=== PATIENT | female | born 1945 | race Caucasian/White ===

== ENCOUNTER 2017-07-31 10:48 | Emergency (ER) | payer MEDICARE, OTHER ==
[~2017-07-31] VITALS: Ht 165.1 cm; Wt 60.0 kg
[~2017-07-31 10:48] MED LIST: ACET325T11; LEVO50TA4 PO; OXYC-360 PO; PRAV40TA PO
[2017-07-31 10:51] VITALS: BP 111/73; PULSE 115; RESP 18; TEMP 98.7; O2SAT 96
[2017-07-31 11:13] VITALS: BP 141/73; PULSE 107; RESP 20; TEMP 98.4; O2SAT 18; O2SAT 97
[2017-07-31] MEDS ORDERED: PRAV40TA2 PO (11:35)
[2017-07-31] MEDS ORDERED: OXYC1TAB63 PO (11:35)
[2017-07-31] MEDS ORDERED: mag oxide (11:35)
[2017-07-31] MEDS ORDERED: LOSA50TA PO (11:35)
[2017-07-31] MEDS ORDERED: MULTIVITAMIN (11:35)
[2017-07-31] MEDS ORDERED: POTA-243 PO (11:35)
[2017-07-31] MEDS ORDERED: METO10TA PO (11:35)
[2017-07-31] MEDS ORDERED: METO25TA3 PO (11:35)
[2017-07-31] MEDS ORDERED: SENN1TAB17 PO (11:35)
[2017-07-31] MEDS ORDERED: AMLO5TAB2 PO (11:35)
[2017-07-31] MEDS ORDERED: PANT20TA2 PO (11:35)
[2017-07-31] MEDS ORDERED: LORA-373 PO (11:35)
[2017-07-31] MEDS ORDERED: VITA1000 PO (11:35)
[2017-07-31] MEDS ORDERED: LEVO50TA4 PO (11:35)
[2017-07-31] MEDS ORDERED: TYLE325T PO (11:37)
[2017-07-31] MEDS ORDERED: tylenol pm (11:37)
--- NOTE | 2017-07-31 11:40 | PD ---
HPI . Nausea/Vomiting Chief Complaint: GI Complaint Time Seen by Provider: 11:28 Travel History International Travel<30 days: No Contact w/Intl Traveler<30days: No Traveled to known affect area: No History of Present Illness HPI 72-year-old female presents to the emergency department for evaluation of nausea , vomiting, confusion, lightheadedness and weakness that started approximately one week ago. Patient has been receiving chemotherapy treatment for endometrial cancer since 2011. Patient was referred to the emergency department today when she arrived for her chemotherapy appointment with Dr. Reyes and reported the recent nausea, vomiting, confusion and weakness. Patient's daughter is her primary caregiver at home. Patient's daughter is at bedside and reports that her magnesium has been low recently and they have been trying to replenish that. Patient's daughter also reports bright red blood in her stool recently. Patient denies any fevers, chills, malaise, dysuria, hematuria or shortness of breath. PFSH Past Medical History Cancer: Yes (CERVICAL CANCER ; ENDOMETRIAL CANCER) Cardiovascular Problems: Yes Chemotherapy: Yes (LAST TREATMENT 07/17) Diabetes: Yes (TYPE II, PT CHECKS GLUCOSE DAILY BUT NOT ON MEDICATIONS) Patient Takes Glucophage: No Hepatitis: No Hiatal Hernia: No Neurologic: No Reproductive: No Respiratory: No Thyroid Disease: Yes ?: Not Past Surgical History Hysterectomy: Yes Pacemaker: No Other Surgery: Yes Social History Alcohol Use: Yes (OCCASSIONAL) Tobacco Use: No Substance Use: No Allergies-Medications (Allergen,Severity, Reaction): Coded Allergies: Sulfa (Sulfonamide Antibiotics) (Unverified Allergy, Severe, RASH, 06/18/17 ) Reported Meds & Prescriptions Reported Meds & Active Scripts Active Reported Tylenol (Acetaminophen) 325 Mg Tab 325 Mg PO Q4H PRN [tylenol pm] HS Losartan (Losartan Potassium) 50 Mg Tab 50 Mg PO DAILY Klor-Con 10 (Potassium Chloride) 10 Meq Tab 20 Meq PO DAILY [multivitamin woman] 1 DAILY Vitamin D-1000 (Cholecalciferol) 1,000 Unit Tab 1,000 Units PO DAILY Senokot S (Sennosides-Docusate Sodium) 8.6-50 Mg Tab 2 Tab PO DAILY [mag oxide] 400 DAILY Pravastatin 40 Mg Tab 40 Mg PO DAILY Amlodipine (Amlodipine Besylate) 5 Mg Tab 5 Mg PO DAILY Metoprolol Tartrate 25 Mg Tab 25 Mg PO DAILY Pantoprazole (Pantoprazole Sodium) 20 Mg Tab 20 Mg PO BID Metoclopramide (Metoclopramide HCl) 10 Mg Tab 10 Mg PO DAILY Lorazepam 0.5 Mg Tab 0.5 Mg PO Q6H PRN Oxycodone-Acetaminophen 5-325 mg Tab 1 Tab PO Q4H PRN Levothyroxine (Levothyroxine Sodium) 50 Mcg Tab 50 Mcg PO DAILY Review of Systems Except as stated in HPI: all other systems reviewed are Neg Physical Exam Narrative GENERAL: Pale fragile appearing 72 year old female in no acute distress. SKIN: Focused skin assessment warm/dry. HEAD: Atraumatic. Normocephalic. EYES: Pupils equal and round. No scleral icterus. No injection or drainage. ENT: No nasal bleeding or discharge. Mucous membranes pink and moist. NECK: Trachea midline. No JVD. LYMPHATIC: Lymphadenopathy noted in cervical and clavicular nodes CARDIOVASCULAR: Regular rate and rhythm. No murmur appreciated. RESPIRATORY: No accessory muscle use. Clear to auscultation. Breath sounds equal bilaterally. GASTROINTESTINAL: Abdomen soft, non-tender, nondistended. Hepatic and splenic margins not palpable. MOUTH: Mucous membranes moist, no lesions, tongue and gums appear normal. MUSCULOSKELETAL: No obvious deformities. No clubbing. No cyanosis. No edema. NEUROLOGICAL: Awake and alert. No obvious cranial nerve deficits. Motor grossly within normal limits. Normal speech. PSYCHIATRIC: Appropriate mood and affect; insight and judgment normal. Data Data Last Documented VS Vital Signs Date Time Temp Pulse Resp B/P (MAP) Pulse Ox O2 Delivery O2 Flow Rate FiO2 07/31/17 13:11 108 20 136/68 (90) 95 Room Air 07/31/17 11:[address] Brain W & W/O Iv Contrast (07/31/17 ) Electrocardiogram (07/31/17 11:40) Complete Blood Count With Diff (07/31/17 11:40) Comprehensive Metabolic Panel (07/31/17 11:40) Prothrombin Time / Inr (Pt) (07/31/17 11:40) Act Partial Throm Time (Ptt) (07/31/17 11:40) Lactic Acid Sepsis Protocol (07/31/17 11:40) Magnesium (Mg) (07/31/17 11:40) Ckmb (Isoenzyme) Profile (07/31/17 11:40) Troponin I (07/31/17 11:40) Urinalysis - C+S If Indicated (07/31/17 11:40) Blood Culture (07/31/17 11:40) Chest, Single Ap (07/31/17 11:40) Blood Glucose (07/31/17 11:40) Ecg Monitoring (07/31/17 11:40) Iv Access Insert/Monitor (07/31/17 11:40) Oximetry (07/31/17 11:40) Oxygen Administration (07/31/17 11:40) Promethazine Inj (Phenergan Inj) (07/31/17 12:15) Sodium Chlorid 0.9% 500 Ml Inj (Ns 500 M (07/31/17 12:15) Urine Culture (07/31/17 13:02) Iohexol 350 Inj (Omnipaque 350 Inj) (07/31/17 13:36) Hospice Consult (07/31/17 15:05) Labs Laboratory Tests Test 07/31/17 11:59 07/31/17 13:02 White Blood Count 18.8 TH/MM3 Red Blood Count 3.12 MIL/MM3 Hemoglobin 10.3 GM/DL Hematocrit 30.8 % Mean Corpuscular Volume 98.6 FL Mean Corpuscular Hemoglobin 33.1 PG Mean Corpuscular Hemoglobin Concent 33.6 % Red Cell Distribution Width 19.0 % Platelet Count 177 TH/MM3 Mean Platelet Volume 7.8 FL Neutrophils (%) (Auto) 85.0 % Lymphocytes (%) (Auto) 2.8 % Monocytes (%) (Auto) 11.9 % Eosinophils (%) (Auto) 0.1 % Basophils (%) (Auto) 0.2 % Neutrophils # (Auto) 16.0 TH/MM3 Lymphocytes # (Auto) 0.5 TH/MM3 Monocytes # (Auto) 2.2 TH/MM3 Eosinophils # (Auto) 0.0 TH/MM3 Basophils # (Auto) 0.0 TH/MM3 CBC Comment AUTO DIFF Differential Comment AUTO DIFF CONFIRMED Prothrombin Time 11.3 SEC Prothromb Time International Ratio 1.0 RATIO Activated Partial Thromboplast Time 26.4 SEC Blood Urea Nitrogen 11 MG/DL Creatinine 0.76 MG/DL Random Glucose 125 MG/DL Total Protein 6.9 GM/DL Albumin 2.8 GM/DL Calcium Level 9.0 MG/DL Magnesium Level 1.7 MG/DL Alkaline Phosphatase 109 U/L Aspartate Amino Transf (AST/SGOT) 17 U/L Alanine Aminotransferase (ALT/SGPT) 7 U/L Total Bilirubin 0.4 MG/DL Sodium Level 136 MEQ/L Potassium Level 4.0 MEQ/L Chloride Level 102 MEQ/L Carbon Dioxide Level 24.7 MEQ/L Anion Gap 9 MEQ/L Estimat Glomerular Filtration Rate 75 ML/MIN Lactic Acid Level 1.6 mmol/L Total Creatine Kinase 20 U/L Troponin I LESS THAN 0.02 NG/ML Urine Color YELLOW Urine Turbidity HAZY Urine pH 6.5 Urine Specific [place] 1.029 Urine Protein 30 mg/dL Urine Glucose (UA) NEG mg/dL Urine Ketones 10 mg/dL Urine Occult Blood SMALL Urine Nitrite NEG Urine Bilirubin NEG Urine Urobilinogen 2.0 MG/DL Urine Leukocyte Esterase SMALL Urine RBC 5 /hpf Urine WBC 5 /hpf Urine Squamous Epithelial Cells 8 /hpf Urine Bacteria RARE /hpf Urine Hyaline Casts 4 /lpf Urine Mucus MANY /lpf Microscopic Urinalysis Comment CATH-CULTURE IND MDM Medical Decision Making Medical Screen Exam Complete: Yes Emergency Medical Condition: Yes Medical Record Reviewed: Yes Differential Diagnosis Differential diagnoses include but not limited to metastatic disease, electrolyte abnormality, sepsis, TIA, CVA, coronary event Narrative Course 72-year-old female presents emergency department for evaluation of nausea, vomiting and confusion that started approximately one week ago. Patient is receiving chemotherapy for endometrial cancer. Patient has been receiving chemotherapy since 2011. Just recently she has had some electrolyte abnormalities, in particular with magnesium. Patient's daughter is her primary caregiver and states her mother's mental status confusion is transient and resolving on its own. She does not report any other neurological deficits in conjunction with confusion. Patient reported to Dr. Reyes' office this morning for her chemotherapy and was referred to the emergency department instead due to reporting the recent nausea vomiting and confusion. Dr Solomon was called and stated he would like the patient to be evaluated for sepsis and possible new metastatic lesions to the brain. CBC, CMP, PT INR, lactic acid, magnesium, troponin, CK, UA, blood cultures, EKG and chest x-ray ordered and pending. CBC shows leukocytosis at 18.8 and decreased hemoglobin at 10.3 CMP slightly low albumin at 2.8, otherwise shows no acute abnormalities PT/INR shows no acute abnormality LACTIC ACID within normal limits at 1.6 MAG within normal limits at 1.7 TROP less than 0.02 CK is 20 UA shows many bacteria, esterase with culture indicated and pending BLOOD CULTURES ordered and pending EKG shows sinus tachycardia with heart rate of 102 CXR shows widespread pulmonary metastatic disease CT of Brain with and without contrast shows multiple bilateral cerebral and cerebellar intra-axial or peripheral enhancing masses consistent with diffuse metastatic disease Due to patient's widespread metastatic disease the family has opted to discontinue aggressive care and focus on comfort measures. Hospice was consult and will follow patient in her home. Patient will be discharged home with hospice. Diagnosis Primary Impression: Metastatic disease Referrals: [facility] Patient Instructions: General Instructions, Hospice (DC), Hospice Care (GEN) Disposition: 01 DISCHARGE HOME Condition: Stable Suzanne Fregoso Jul 31, 2017 11:40
[2017-07-31 12:13] LABS: BASOPHIL % 0.2 % (0.0-2.0); EOSINOPHIL % 0.1 % (0.0-4.0); HEMATOCRIT 30.8 % (35.0-46.0); LYMPH % 2.8 % (9.0-44.0); LYMPHOCYTE # 0.5 TH/MM3 (1.0-4.8); MEAN CELL VOLUME 98.6 FL (80.0-100.0); MEAN CORPUSCULAR HEMOGLOBIN 33.1 PG (27.0-34.0); MEAN CORPUSCULAR HGB CONC 33.6 % (32.0-36.0); MONO % 11.9 % (0.0-8.0); PLATELET COUNT 177 TH/MM3 (150-450); RED BLOOD COUNT 3.12 MIL/MM3 (4.00-5.30); WHITE BLOOD COUNT 18.8 TH/MM3 (4.0-11.0)
[2017-07-31 12:15] LABS: HEMO FLAGS AUTO DIFF
[2017-07-31] MEDS ORDERED: PROMETHAZINE INJ 25 MG/ML VIAL IM ONE (12:15)
[2017-07-31] MEDS ORDERED: SODIUM CHLORID 0.9% 500 ML INJ 500 ML IV ONE (12:15)
[2017-07-31 12:21] LABS: APTT (PATIENT) 26.4 SEC (24.3-30.1); PROTHROMBIN TIME - PATIENT 11.3 SEC (9.8-11.6)
[2017-07-31 12:34] LABS: ALT (GPT) 7 U/L (10-53); ANION GAP 9 MEQ/L (5-15); AST (GOT) 17 U/L (15-37); BICARBONATE 24.7 MEQ/L (21.0-32.0); BLOOD UREA NITROGEN 11 MG/DL (7-18); CHLORIDE 102 MEQ/L (98-107); GLOMERULAR FILTRATION RATE 75 ML/MIN (>89); MAGNESIUM 1.7 MG/DL (1.5-2.5); SODIUM (NA) 136 MEQ/L (136-145)
[2017-07-31 12:38] LABS: ALKALINE PHOSPHATASE 109 U/L (45-117); TOTAL BILIRUBIN ADULT 0.4 MG/DL (0.2-1.0)
[2017-07-31 12:42] LABS: CREATINE KINASE 20 U/L (26-192)
[2017-07-31 12:45] LABS: SCAN/DIFF AUTO DIFF CONFIRMED
--- NOTE | 2017-07-31 12:54 | RADRPT ---
EXAM DATE/TIME: 07/31/2017 12:20 [facility] COMPARISON: CHEST SINGLE AP, December 12, 2015, 13:09. INDICATIONS : Nausea, vomiting. MEDICAL HISTORY : Diabetes mellitus type II. Metastatic disease. SURGICAL HISTORY : Hysterectomy. Port placement. ENCOUNTER: Initial ACUITY: 1 week PAIN SCORE: 0/10 LOCATION: Bilateral chest FINDINGS: Multiple bilateral parenchymal lung nodules are present of varying sizes involving upper mid and lowe r lung zones bilaterally. A right chest port is present in satisfactory position. Heart size is withi n normal limits. CONCLUSION: Widespread pulmonary metastatic disease Renato Ash MD on July 31, 2017 at 12:42 Board Certified Radiologist. This report was verified electronically.
[2017-07-31 13:01] VITALS: BP 146/76; PULSE 146; RESP 20; O2SAT 96
[2017-07-31 13:11] VITALS: BP 136/68; PULSE 108; RESP 20; O2SAT 95
[2017-07-31 13:20] LABS: BACTERIA, URINE RARE /hpf; BLOOD, URINE SMALL (NEG); GLUCOSE,URINE NEG (NEG); HYALINE CAST, URINE 4 /lpf (RARE); KETONE, URINE 10 mg/dL (NEG); MUCUS URINE MANY /lpf (OCC); NITRITE,URINE NEG (NEG); PH, URINE 6.5 (5.0-8.5); SQUAMOUS EPITHELIAL CELL URINE 8 /hpf (0-5); URINE COLOR YELLOW (YELLW/STRAW)
[2017-07-31 13:21] LABS: COMMENT (UR) CATH-CULTURE IND; CULTURE IF INDICATED CATH CULTURE IND
[2017-07-31] MEDS ORDERED: IOHEXOL 350 MG/ML 10 ML VIAL (for RAD DIAG) IVCONTRAST ONE (13:36)
--- NOTE | 2017-07-31 13:47 | RADRPT ---
EXAM DATE/TIME: 07/31/2017 13:17 [facility] COMPARISON: CHEST SINGLE AP, July 31, 2017, 12:20. INDICATIONS : Nausea, vomiting and periods of confusion. IV CONTRAST: 98 cc Omnipaque 350 (iohexol) IV RADIATION DOSE: 30.91 CTDIvol (mGy) MEDICAL HISTORY : Diabetes mellitus type 2. Endometrial cancer, cervical cancer. SURGICAL HISTORY : Hysterectomy. ENCOUNTER: Initial ACUITY: 1 day PAIN SCALE: 5/10 LOCATION: cranial TECHNIQUE: Multiple contiguous axial images were obtained of the head. Using automated exposure control and adj ustment of the mA and/or kV according to patient size, radiation dose was kept as low as reasonably a chievable to obtain optimal diagnostic quality images. DICOM format image data is available electro nically for review and comparison. FINDINGS: CEREBRUM: Multiple peripherally enhancing hypodense intra-axial masses bilaterally, primarily in the mid to low convexities. The largest in the right frontal lobe measures approximately 2.1 x 1.4 cm. The largest in the right temporal lobe measures 1.6 x 1.1 cm. The largest in the left temporal lobe measures 1.7 1.6 cm. There is no significant associated edema. The ventricles are normal for degree of atrophy. No significant midline shift. No significant intra-or extra-axial fluid collections or hemorrhage. POSTERIOR FOSSA: Bilateral cerebellar peripherally enhancing hypodense intra-axial masses. Largest measures 3.0 x 2.1 cm in the superior left cerebellum. There is no significant edema although there is moderate mass eff ect. Basilar cisterns are maintained. Brainstem appears grossly intact. EXTRACRANIAL: The visualized portion of the orbits is intact. SKULL: The calvaria is intact. No evidence of skull fracture. POST CONTRAST: No abnormal areas of parenchymal or dural enhancement. No evidence of blood-brain barrier breakdown. CONCLUSION: 1. Multiple bilateral cerebral and cerebellar intra-axial peripherally enhancing masses consistent wi th diffuse metastatic disease, as above. 2. No significant acute hemorrhage or herniation. Babar Dunne MD on July 31, 2017 at 13:37 Board Certified Radiologist. This report was verified electronically.
--- NOTE | 2017-07-31 16:54 | MB ---
cc: ESTHER LARA M.D., KELLY L. MD PATTERSON,RONI MILLER MD DATE OF CONSULTATION 07/31/[address] Seferino Suarez REASON FOR CONSULTATION The patient known to us with recurrent metastatic uterine cancer. REASON FOR EMERGENCY ROOM EVALUATION Mental status changes, confusion, weakness, nausea, vomiting, failure to thrive. HISTORY This is a 72-year-old female who has been under our care for a number of years. She was seen in our office on July 23, 2017 for an updated status regarding the extent of recurrent disease as shown on PET scan had previously been discussed. She is currently on line six of weekly Taxol chemotherapy with 25% dose reduction. She remained attached in her hope to continue fighting this cancer and wanted to stay on treatment. However, her and her family both alluded to the fact that her energy was declining. She would at times feel short of breath with very mild activity, but was still able to eat and drink. Bowel, bladder function were adequate. She was scheduled for chemotherapy today. She presented to our office where our oncology nurse (Gillian Prieto) assessed her and in discussion with Darlene Yarbrough's daughter (Gillian) it was clear that she was not feeling well, not doing well and was not able to take chemotherapy today. These findings were discussed with me. We agreed that she should be taken to the emergency room for evaluation. I had the opportunity to see her and her daughter Gillian prior to going to the emergency room. She says that she feels worse than she has ever felt in her life and she accurately says that she is not one to complain. She was clearly feeling poorly. Difficult for her to focus, felt very weak and was sitting in a wheelchair. She was in agreement with emergency room evaluation. We expressed our concerns as to why she was feeling so poorly. Given the extensive nature of her disease we expressed concern about the possibility of cancer in the brain and/or elsewhere in the central nervous system. Other concerns would be that of a sepsis or profound abnormalities in her electrolytes or underlying cardiac problem or others, with our first concern being that of metastatic disease. I then had the opportunity to speak to ANTONIO Shah, in the emergency room and subsequent conversation with Dr. Suarez who had echoed those concerns. Imaging was obtained accordingly and indeed unfortunately imaging shows multifocal enhancing lesions in multiple regions of the brain consistent with metastatic disease. I then had a lengthy discussion with Darlene Yarbrough's daughter, Gillian, with Darlene Yarbrough providing some input into the conversation, explaining the findings and the difficult nature of this situation. Explaining why I do not believe she would be a candidate for any type of neurosurgical intervention. Furthermore, the only palliative thing that could be considered would be brain radiation which may likely be whole-brain radiation given the multifocal nature of the tumor which would be palliative and temporary at best. I have known this family a long time and she has always emphasized quality of life over quantity and the current concern is that her quality of life is diminished to the point where they inquire seriously about hospice care. I think it is reasonable to consider hospice given the known recurrent metastatic and now progressive nature of this disease despite treatment and she has been steadfast in her treatment and efforts over many years but now I think it is improbable that any additional treatment would provide any significant or substantial improvement. Gillian expressed extreme gratitude for the care provided and very complementary of our office staff and the infusion center nurses, the hospital nurses, techs, physicians and all personnel involved in her care. In keeping with the prior discussions and discussions today all are in agreement to forego any further medical evaluation or intervention but to consult hospice. It is her hope that she can receive hospice care at home and tried to answer questions to the best of my capacity regarding prognosis and life expectancy with a relatively high degree of uncertainty but it is emphasized that other family members and friends should be notified and if they wish to visit or need to travel I think now would be a good time so that they can interact with her while she is still awake and alert enough and able to interact with her guests. Discussion ensued, questions were answered and they know that we are available at any time. They can call our office at any time and we will help in any way possible. ASSESSMENT 1. Recurrent metastatic high-grade endometrial cancer. 2. Currently been on line six single-agent dose reduced Taxol chemotherapy. 3. Nausea, vomiting, failure to thrive, confusion, overall mental status changes. 4. Imaging confirming new multifocal brain metastases. 5. Extensive discussion. PLAN Hospice will be consulted, to meet with Darlene Yarbrough and her family in the home to educate them about resources available and to move forward with home hospice care. MD LUZ ELENA Kapoor/MAGDY /3:55 PM /4:25 PM
--- NOTE | 2017-08-01 10:30 | EKG ---
Date Performed: 07/31/2017 Time Performed: 12:25:48 PTAGE: 72 years EKG: SINUS TACHYCARDIA NONSPECIFIC T-WAVE ABNORMALITY ABNORMAL RHYTHM ECG PREVIOUS TRACING : 12/12/2015 12.57 Compared to prior tracing no significant change DOCTOR: Trey Ochoa Interpretating Date/Time 08/01/2017 10:22:42
[2017-08-02] MEDS ORDERED: MAGN400T2 PO (10:49)
[2017-08-02] MEDS ORDERED: ONETAB13 PO (10:49)
[2017-08-02] MEDS ORDERED: ACET25TA2 PO (10:49)
== END 2017-07-31 17:51 | disposition home or self-care (01) ==
LOC: NEPC 10:48
DX: C54.1 Malignant neoplasm of endometrium (principal); C79.31 Secondary malignant neoplasm of brain; C78.00 Secondary malignant neoplasm of unspecified lung; R62.7 Adult failure to thrive; D72.829 Elevated white blood cell count, unspecified; R00.0 Tachycardia, unspecified; R94.31 Abnormal electrocardiogram [ECG] [EKG]; R41.0 Disorientation, unspecified; K92.1 Melena; E11.9 Type 2 diabetes mellitus without complications; E07.9 Disorder of thyroid, unspecified
CPT/HCPCS: 70470; 71010; 80053; 81001; 82550; 83605; 83735; 84484; 85025; 85610; 85730; 87040; 87086; 93005; 96360; 96372; 99285; J2550; J7040; Q9967